=== PATIENT | male | born 1945 | race Caucasian/White ===

== ENCOUNTER 2016-02-25 11:44 | Emergency (ER) | payer MEDICARE, MEDICAID ==
[~2016-02-25] VITALS: Ht 165.1 cm; Wt 70.3 kg
[~2016-02-25 11:44] MED LIST: ASPIRIN80 MG PO; ATENOLOL50 MG PO; CIPRO500 MG PO; D3 VITAMIN400 IU/ML PO; HYDROCHLOROTHIA25 MG PO; MS CONTIN30 MG PO; MULTIVITAMIN1 TAB PO; NEURONTIN400 MG PO; PERCOCET 325 MG1 TA7 PO; PREDNICOT10 MG PO; ULTRAM50 MG PO; VALIUM5 MG PO; WELLBUTRIN SR150 MG PO; ZOCOR80 MG PO; ZOVIRAX400 MG PO
[2016-02-25] MEDS ORDERED: CEPHALEXIN500 M1 PO ×2 (13:42→13:45)
== END 2016-02-25 13:43 | disposition home or self-care (01) ==
LOC: ED 11:44
DX: L03.115 Cellulitis of right lower limb (principal); F17.200 Nicotine dependence, unspecified, uncomplicated; Z79.82 Long term (current) use of aspirin; Z79.899 Other long term (current) drug therapy; Z91.018 Allergy to other foods

== ENCOUNTER → 2016-05-27 | Outpatient (CLI) | payer MEDICARE, MEDICAID ==
[~2016-05-27] MED LIST changes: +CEPHALEXIN500 M1 PO
--- NOTE | ~2016-05-27 | WRIGHTHP ---
[place], [place] PATIENT HISTORY AND PHYSICAL EXAM NAME: JOSE DELGADO [facility] #: [id number] UNIT #: [id number] ROOM: DOCTOR: PIETER GreeneJAKI BIRTHDATE: [birth year] DOS: 05/27/2016 CHIEF COMPLAINT: Chronic wound of the right lower extremity. HISTORY OF PRESENT ILLNESS: This is a 71-year-old male who injured his right lower extremity when he accidentally lacerated his lower right phillips with a hatchet by accident. This happened back in February 2016. He was seen in the ER as he thought it was getting infected. This happened actually after several days before he presented to the ER. There was some notable necrotic area, large amount of ecchymosis, swelling and redness. The patient was treated for cellulitis and then he apparently had an x-ray done which showed an ill-defined tibial lesion recommendation was to consider nonemergent CT scan. Apparently, the patient did follow up with Dr. Madison for this and apparently he did have an MRI done, I do not have the report here, but he says he was told that it was unremarkable; however, he continues to have an area where it has not healed, it is red and still open and occasionally drains. He has been using bacitracin on a very thickly every day now without improvement. PAST MEDICAL HISTORY: Significant for the following: He has had aortic valve repair, stent placement at [facility] 2010 as well as carotid endarterectomy. He is not diabetic. He has had a history of lower back aches. He has had some adrenal surgery done. FAMILY HISTORY: Significant for diabetes, heart disease. SOCIAL HISTORY: He is a current everyday smoker. He has been smoking since the age of 16. He is . He does not drink alcohol or use drugs. ALLERGIES: No known drug allergies. MEDICATIONS: As follows, aspirin low dose 81 mg daily, Ultram 50 b.i.d. p.r.n., Valium 5 mg b.i.d., Neurontin 400 mg every day, Zocor 80 daily, adult multiplex omega 3 chewable tablets daily, Wellbutrin SR 150 b.i.d., hydrochlorothiazide 25 mg daily. REVIEW OF SYSTEMS: He denies any fevers, chills, nausea, vomiting, abdominal pains, or diarrhea. He says he ambulates. He does state that he has had some occasional discomfort in his right leg when he is pushing the feather cutting machine feeder and he will have to stop and breaths before it gets better, but other than that he has not really noticed any other symptoms regarding claudication. PHYSICAL EXAMINATION: VITAL SIGNS: He is afebrile, pulse is 78, respirations 18, and blood pressure is 156/80. In general, he has got a wound that is located on the right anterior tibia. It is a circular wound with what appears to be some periwound dermatitis. There is some erythema right around the wounded area. It is measuring 3 x 3.2 x 0.1. There is no purulence. There does not appear to be cellulitic. No debridement was done. GENERAL: He looks to be his stated age. He is pleasant and cooperative, in no acute distress. [place], [place] PATIENT HISTORY AND PHYSICAL EXAM [facility]: [facility] [id number] UNIT #: [id number] ROOM: DOCTOR: JAKI STAPLETON M.D. BIRTHDATE: [birth year] NECK: There is no JVD. LUNGS: Clear. CARDIOVASCULAR: S1, S2 regular rate and rhythm. ABDOMEN: Soft and nontender. EXTREMITIES: There is no edema, no calf tenderness. His pulses are palpable, although they appear to be weaker on the left side than the right side. He has got good capillary refill and severe onychomycosis bilaterally. His FLOYD was somewhat low on the left side at 0.68 and 0.81 on the right. ASSESSMENT AND PLAN: Chronic wound of the right lower extremity that started out as traumatic injury. I think he does have some fair amount of contact dermatitis, likely from the bacitracin. We will go ahead and stop that. I would just use Aquacel AG for the open area of the wound for now and use some hydrocortisone cream, triamcinolone was written for the periwound area. We will have him change this every other day and have a followup next week. In the meantime, I would like him to get arterial studies due to the low FLOYD and his symptoms of possible claudication. He is a smoker. He had carotid surgery as well as cardiac stents. He is at risk for peripheral vascular disease. I would like them to go ahead and get that test as well. JAKI STAPLETON MD CM:HISPHYS:PATIENT HISTORY AND PHYSICAL EXAMINATION [id number] JAKI STAPLETON M.D. 05/28/16 0936 interface
== END ==
LOC: WOUNDCARE 12:12
DX: S81.811D Laceration without foreign body, right lower leg, subsequent encounter (principal); I48.91 Unspecified atrial fibrillation; B35.1 Tinea unguium; F17.210 Nicotine dependence, cigarettes, uncomplicated; X58.XXXD Exposure to other specified factors, subsequent encounter

== ENCOUNTER → 2016-06-03 | Outpatient (CLI) | payer MEDICARE, MEDICAID | END | disposition home or self-care (01) | LOC: US 10:31 | DX: L97.819 Non-pressure chronic ulcer of other part of right lower leg with unspecified severity (principal); I73.9 Peripheral vascular disease, unspecified ==

== ENCOUNTER → 2016-06-06 | Outpatient (CLI) | payer MEDICARE, MEDICAID ==
--- NOTE | ~2016-06-06 | PR ---
[place], [place] PROGRESS NOTE NAME: JOSE DELGADO JR [facility] #: [id number] UNIT #: [id number] ROOM: DOCTOR: PIETER Greene,JAKI BIRTHDATE: [birth year] DOS: 06/06/2016 CHIEF COMPLAINT: Chronic wound of the right lower extremity. HISTORY OF PRESENT ILLNESS: He had a wound on his right leg back in February, which was traumatic in nature. He was seen for the first time in the [facility] last week and it was felt that he had a chronic wound on the right lower extremity that was worsened by a contact dermatitis, likely from continued use of bacitracin we stopped that and had him use Aquacel Ag dressing to the area and hydrocortisone cream to the periwound area and he was seen here today for this second visit. The wound appears healed. He has no complaints. There is no redness. There is no area of dermatitis. There are no open areas at this time, it looks well healed. He did have an arterial Doppler done as he had an FLOYD 0.68 on the left and 0.81 on the right, which was normal. Unfortunately, they did not take off any of his bandages of the right lower extremity or evaluate any of the arteries below the popliteal. So up to the popliteal artery everything was good, but we do not have any information on the distal arteries. ASSESSMENT AND PLAN: Healed wound. The patient is going to be discharged from the Wound Clinic. I did go over the arterial Doppler study with him if he does have any concerns with his circulation. He can discuss this with his primary care and consider repeating a study at a different venue perhaps. JAKI STAPLETON MD CM:NAVEEN [id number] JAKI STAPLETON M.D. 06/06/16 1228 interface
== END ==
LOC: WOUNDCARE
DX: S81.811D Laceration without foreign body, right lower leg, subsequent encounter (principal); L25.8 Unspecified contact dermatitis due to other agents; X58.XXXD Exposure to other specified factors, subsequent encounter

== ENCOUNTER → 2017-04-24 | Outpatient (CLI) | payer MEDICARE | END | disposition home or self-care (01) | LOC: RAD 13:50 | DX: J44.9 Chronic obstructive pulmonary disease, unspecified (principal); Z87.891 Personal history of nicotine dependence ==

== ENCOUNTER → 2017-05-02 | Outpatient (CLI) | payer MEDICARE ==
--- NOTE | ~2017-05-02 | PF ---
[place], [place] PULMONARY FUNCTION TEST NAME: JOSE DELGADO JR [facility] #: [id number] UNIT #: [id number] ROOM: DOCTOR: KIT MONTEJO MD,JOHANNE BIRTHDATE: [birth year] DOS: 05/02/2017 ORDERED BY: Mckenzie Bansal, nurse practitioner. HISTORY: The patient recorded as a 72-year-old male, height of 67 inches, weight 152 pounds diagnosed with COPD without any active symptom. The patient noted history of tobacco use 1 pack of cigarettes a day for 57 years. SPIROMETRY: The FVC was recorded at 3.60 liters as 95% predicted value, FEV1 of 2.61 liters as 95% predicted value. Ratio of FEV1/FVC recorded as 72%. No significant postbronchodilator changes were noted. Flow volume loop was suggestive of mild obstructive airway pattern. LUNG VOLUME: Thoracic gas volume of 125%, residual volume 37%, total lung capacity 106%. RV/TLC ratio 128%. Lung volumes suggest mild air trapping. The patient's lung diffusion noted mildly decreased at 63% without correction of carbon monoxide hemoglobin value. The patient's airway resistance and passive conductance noted normal, partial improvement post-bronchodilator test. FINAL IMPRESSION: The test was suggestive of possibility of mild reversible obstructive lung disease for patient with mild reduction in lung diffusion. JOHANNE PANTOJA MD CM:PFREPORT:PULMONARY FUNCTION TEST [id number] JOHANNE MONTEJO MD
== END | disposition home or self-care (01) ==
LOC: CP 12:42
DX: J44.9 Chronic obstructive pulmonary disease, unspecified (principal)

== ENCOUNTER → 2017-05-13 | Outpatient (CLI) | payer MEDICARE | END | disposition home or self-care (01) | LOC: CT 09:28 | DX: N20.0 Calculus of kidney (principal); I71.4 Abdominal aortic aneurysm, without rupture; K57.30 Diverticulosis of large intestine without perforation or abscess without bleeding; M88.88 Osteitis deformans of other bones ==

== ENCOUNTER → 2017-08-22 | Outpatient (CLI) | payer MEDICARE | END | disposition home or self-care (01) | LOC: US 00:01 | DX: N13.30 Unspecified hydronephrosis (principal); N20.0 Calculus of kidney ==

== ENCOUNTER → 2017-08-23 | Outpatient (CLI) | payer MEDICARE | END | disposition home or self-care (01) | LOC: RAD 00:01 | DX: N20.0 Calculus of kidney (principal) ==

== ENCOUNTER → 2017-12-22 | Outpatient (CLI) | payer MEDICARE | END | disposition home or self-care (01) | LOC: US 07:15 | DX: N20.0 Calculus of kidney (principal); N40.1 Benign prostatic hyperplasia with lower urinary tract symptoms; M88.9 Osteitis deformans of unspecified bone ==

== ENCOUNTER → 2018-06-11 | Outpatient (CLI) | payer MEDICARE | END | disposition home or self-care (01) | LOC: CT 08:51 | DX: C74.91 Malignant neoplasm of unspecified part of right adrenal gland (principal); K57.30 Diverticulosis of large intestine without perforation or abscess without bleeding; K76.0 Fatty (change of) liver, not elsewhere classified ==

== ENCOUNTER 2018-07-30 23:08 | Emergency (ER) | payer MEDICARE ==
[~2018-07-30] VITALS: Ht 160 cm; Wt 64.0 kg
[2018-07-30 23:42] LABS: BASO % 0.4 % (0.0-1.0); EOS # 0.3 10*3/uL (0.0-0.4); EOS % 3.4 % (1.0-4.0); HEMATOCRIT 43.5 % (42.0-52.0); HEMOGLOBIN 14.6 g/dl (14.0-18.0); LYMPH % 20.2 % (27.0-41.0); MEAN CELL VOLUME 99.5 fl (80.0-94.0); MEAN CORPUSCULAR HGB 33.4 pg (27.0-31.0); MEAN CORPUSCULAR HGB CONC 33.6 g/dl (33.0-37.0); MEAN PLATELET VOLUME 10.1 fl (9.6-12.3); NEUT # 6.5 10*3/uL (2.3-7.9); NEUT % 65.7 % (47.0-73.0); PLATELET COUNT AUTOMATED 134 10*3/uL (130-400); RED BLOOD COUNT 4.37 10*6/uL (4.50-5.90); WHITE BLOOD COUNT 9.9 10*3/uL (4.8-10.8)
[2018-07-30 23:56] LABS: ALBUMIN 3.4 gm/dl (3.1-4.5); ALKALINE PHOSPHATASE 118 U/L (45-117); BUN 19 mg/dl (7-24); CHLORIDE 102 mmol/L (98-107); CREATININE 1.34 mg/dL (0.70-1.30); LIPASE 83 U/L (73-393); POTASSIUM 3.3 mmol/L (3.5-5.1); SGOT/AST 17 IU/L (3-35); SGPT/ALT 13 U/L (12-78); SODIUM 136 mmol/L (136-145); TOTAL PROTEIN 7.7 gm/dL (6.4-8.2)
[2018-07-31 01:04] LABS: BILIRUBIN NEGATIVE (NEGATIVE); BLOOD 2+ (NEGATIVE); CLARITY CLEAR (CLEAR); COLOR YELLOW (YELLOW); GLUCOSE NEGATIVE (NEGATIVE); KETONE TRACE (NEGATIVE); LEUKO ESTERASE TRACE (NEGATIVE); NITRITE NEGATIVE (NEGATIVE); PH 6.5 (5.0-9.0); SPECIFIC GRAVITY 1.015 (1.005-1.030); UROBILINOGEN 0.2 E.U./dl (0.2-1.0)
[2018-07-31 01:19] LABS: RBC 21-30 rbc/hpf (0-2)
== END 2018-07-31 03:38 | disposition short-term general hospital (02) ==
LOC: ED 23:08
PROVIDERS: Physician Assistant
DX: N13.2 Hydronephrosis with renal and ureteral calculous obstruction (principal); Z87.442 Personal history of urinary calculi; Z91.018 Allergy to other foods; Z79.2 Long term (current) use of antibiotics; Z79.82 Long term (current) use of aspirin; Z79.899 Other long term (current) drug therapy

== ENCOUNTER → 2018-12-03 | Outpatient (CLI) | payer MEDICARE | END | disposition home or self-care (01) | LOC: CP 13:37 | DX: J43.9 Emphysema, unspecified (principal) ==

== ENCOUNTER 2020-02-17 22:48 | Emergency (ER) | payer MEDICARE ==
[~2020-02-17] VITALS: Ht 162.5 cm; Wt 65.8 kg
[2020-02-17 23:36] LABS: BASO % 0.4 % (0.0-1.0); EOS # 0.1 10*3/uL (0.0-0.4); EOS % 1.9 % (1.0-4.0); HEMATOCRIT 43.9 % (42.0-52.0); LYMPH # 1.2 10*3/uL (1.3-4.4); LYMPH % 17.4 % (27.0-41.0); MEAN CORPUSCULAR HGB 32.3 pg (27.0-31.0); MEAN CORPUSCULAR HGB CONC 32.3 g/dl (33.0-37.0); MEAN PLATELET VOLUME 9.9 fl (9.6-12.3); MONO # 0.5 10*3/uL (0.1-1.0); MONO % 7.1 % (3.0-9.0); NEUT # 5.1 10*3/uL (2.3-7.9); NEUT % 73.1 % (47.0-73.0); PLATELET COUNT AUTOMATED 153 10*3/uL (130-400); RED BLOOD COUNT 4.39 10*6/uL (4.50-5.90); WHITE BLOOD COUNT 6.9 10*3/uL (4.8-10.8)
[2020-02-17 23:52] LABS: ALBUMIN 3.4 gm/dl (3.1-4.5); ALKALINE PHOSPHATASE 113 U/L (45-117); BUN 21 mg/dl (7-24); CHLORIDE 102 mmol/L (98-107); CREATININE 1.28 mg/dL (0.70-1.30); POTASSIUM 3.6 mmol/L (3.5-5.1); SGOT/AST 16 IU/L (3-35); SGPT/ALT 16 U/L (12-78); SODIUM 136 mmol/L (136-145); TOTAL PROTEIN 7.6 gm/dL (6.4-8.2)
[2020-02-18 02:24] LABS: BILIRUBIN Negative (Negative); BLOOD Trace-Lysed (Negative); CLARITY Clear (Clear); COLOR Yellow (Yellow); GLUCOSE Negative (Negative); KETONE 1+ (Negative); LEUKO ESTERASE Trace (Negative); NITRITE Negative (Negative); SPECIFIC GRAVITY 1.025 (1.001-1.030)
[2020-02-18] MEDS ORDERED: OMNICEF300 MG PO (02:44)
== END 2020-02-18 03:02 | disposition home or self-care (01) ==
LOC: ED 22:48
PROVIDERS: Emergency Medicine
DX: J18.9 Pneumonia, unspecified organism (principal); Z79.82 Long term (current) use of aspirin; Z79.899 Other long term (current) drug therapy; Z20.828 Contact with and (suspected) exposure to other viral communicable diseases

== ENCOUNTER → 2020-09-08 | Outpatient (CLI) | payer MEDICARE ==
[~2020-09-08] MED LIST changes: +OMNICEF300 MG PO
== END | disposition home or self-care (01) ==
LOC: US 09-07 11:30
PROVIDERS: ATTEND Physician Assistant
DX: I25.10 Atherosclerotic heart disease of native coronary artery without angina pectoris (principal); I10 Essential (primary) hypertension; R09.89 Other specified symptoms and signs involving the circulatory and respiratory systems; E78.00 Pure hypercholesterolemia, unspecified; M54.41 Lumbago with sciatica, right side; F17.200 Nicotine dependence, unspecified, uncomplicated; F17.210 Nicotine dependence, cigarettes, uncomplicated; R29.898 Other symptoms and signs involving the musculoskeletal system

== ENCOUNTER → 2020-09-18 | Outpatient (CLI) | payer MEDICARE | END | disposition home or self-care (01) | LOC: CT 08:56 | PROVIDERS: ATTEND Physician Assistant | DX: I67.89 Other cerebrovascular disease (principal); E86.9 Volume depletion, unspecified; I10 Essential (primary) hypertension; R29.898 Other symptoms and signs involving the musculoskeletal system; H61.23 Impacted cerumen, bilateral; E78.00 Pure hypercholesterolemia, unspecified; F17.210 Nicotine dependence, cigarettes, uncomplicated ==

== ENCOUNTER → 2021-08-03 | Outpatient (CLI) | payer MEDICARE | END | disposition home or self-care (01) | LOC: CT 07-27 09:00 | PROVIDERS: ATTEND Surgery | DX: N20.2 Calculus of kidney with calculus of ureter (principal); R91.1 Solitary pulmonary nodule; M88.89 Osteitis deformans of multiple sites ==

== ENCOUNTER → 2021-09-13 | Outpatient (CLI) | payer MEDICARE ==
[~2021-09-13] MED LIST changes: +CELEXA10 MG PO; +LYRICA225 MG PO; +MELOXICAM15 MG PO; +Mysoline50 MG PO; +PAROXETINE10 MG PO; +PROPRANOLOL HCL40 M1 PO; +PROTONIX40 MG PO
== END | disposition home or self-care (01) ==
LOC: RAD 12:20
PROVIDERS: ATTEND Physician Assistant
DX: J98.11 Atelectasis (principal)

== ENCOUNTER 2021-09-22 17:46 | Emergency (ER) | payer MEDICARE ==
[2021-09-22 18:27] LABS: BASO % 0.3 % (0.0-1.0); EOS # 0.2 10*3/uL (0.0-0.4); HEMATOCRIT 36.5 % (42.0-52.0); LYMPH # 1.7 10*3/uL (1.3-4.4); LYMPH % 17.2 % (27.0-41.0); MEAN CELL VOLUME 96.1 fl (80.0-94.0); MEAN CORPUSCULAR HGB 31.8 pg (27.0-31.0); MEAN CORPUSCULAR HGB CONC 33.2 g/dl (33.0-37.0); MEAN PLATELET VOLUME 9.8 fl (9.6-12.3); MONO # 0.9 10*3/uL (0.1-1.0); MONO % 8.9 % (3.0-9.0); NEUT # 6.9 10*3/uL (2.3-7.9); NEUT % 71.3 % (47.0-73.0); PLATELET COUNT AUTOMATED 226 10*3/uL (130-400); RED CELL DISTRI WIDTH 14.3 % (0-14.5); WHITE BLOOD COUNT 9.7 10*3/uL (4.8-10.8)
[2021-09-22 18:43] LABS: ALKALINE PHOSPHATASE 102 U/L (45-117); BUN 19 mg/dl (7-24); CHLORIDE 103 mmol/L (98-107); CREATININE 1.04 mg/dL (0.70-1.30); POTASSIUM 3.8 mmol/L (3.5-5.1); SGOT/AST 25 IU/L (3-35); SGPT/ALT 24 U/L (12-78); SODIUM 135 mmol/L (136-145); TOTAL PROTEIN 7.8 gm/dL (6.4-8.2)
[2021-09-22] MEDS ORDERED: VIBRAMYCIN100 MG PO (20:18)
== END 2021-09-22 20:41 | disposition home or self-care (01) ==
LOC: ED 17:46
PROVIDERS: Physician Assistant
DX: J18.9 Pneumonia, unspecified organism (principal); Z20.822 Contact with and (suspected) exposure to COVID-19; F17.200 Nicotine dependence, unspecified, uncomplicated; Z79.899 Other long term (current) drug therapy; Z79.82 Long term (current) use of aspirin

== ENCOUNTER → 2021-11-01 | Outpatient (CLI) | payer MEDICARE ==
[~2021-11-01] MED LIST changes: +VIBRAMYCIN100 MG PO
== END | disposition home or self-care (01) ==
LOC: CARD 12:48
PROVIDERS: ATTEND Internal Medicine
DX: I73.9 Peripheral vascular disease, unspecified (principal)

== ENCOUNTER 2022-10-07 19:00 | Emergency (ER) | payer OTHER ==
[~2022-10-07] VITALS: Ht 167.6 cm; Wt 63.5 kg
[~2022-10-07 19:00] MED LIST changes: +Carafate1 GM PO; +DONEPEZIL HYDROC5 MG PO; +MAPAP ARTHRITI650 MG PO; +MYRBETRIQ25 M1 PO; +NEURONTIN300 MG PO; +SIMVASTATIN40 MG PO; +TAMSULOSIN HCL0.4 MG PO
[2022-10-07 19:58] LABS: BASO % 0.4 % (0.0-1.0); EOS # 0.4 10*3/uL (0.0-0.4); EOS % 3.8 % (1.0-4.0); HEMATOCRIT 38.6 % (42.0-52.0); LYMPH # 1.8 10*3/uL (1.3-4.4); MEAN CELL VOLUME 100.8 fl (80.0-94.0); MEAN CORPUSCULAR HGB 32.4 pg (27.0-31.0); MEAN CORPUSCULAR HGB CONC 32.1 g/dl (33.0-37.0); MONO # 0.7 10*3/uL (0.1-1.0); MONO % 7.8 % (3.0-9.0); NEUT # 6.2 10*3/uL (2.3-7.9); NEUT % 67.7 % (47.0-73.0); PLATELET COUNT AUTOMATED 195 10*3/uL (130-400); RED BLOOD COUNT 3.83 10*6/uL (4.50-5.90); RED CELL DISTRI WIDTH 13.4 % (0-14.5); WHITE BLOOD COUNT 9.1 10*3/uL (4.8-10.8)
[2022-10-07 20:18] LABS: ACT PARTIAL THROMBO TIME 32.2 SECONDS (20.0-32.1)
[2022-10-07 20:22] LABS: ALKALINE PHOSPHATASE 125 U/L (46-116); BUN 23 mg/dl (9-23); CHLORIDE 105 mmol/L (98-107); LIPASE 41 U/L (12-53); POTASSIUM 4.9 mmol/L (3.4-5.1); SGPT/ALT 11 U/L (10-49); TOTAL PROTEIN 7.1 gm/dL (6.0-8.0)
[2022-10-07 20:25] LABS: ETHYL ALCOHOL < 3.0 mg/dl (<3)
[2022-10-07 20:26] LABS: BILIRUBIN Negative (Negative); BLOOD Negative (Negative); CLARITY Cloudy (Clear); COLOR Dark Yellow (Yellow); GLUCOSE Negative (Negative); KETONE Trace (Negative); LEUKO ESTERASE Trace (Negative); NITRITE Negative (Negative); PH 6.5 (4.5-8.0); SPECIFIC GRAVITY 1.025 (1.001-1.030)
[2022-10-07 20:33] LABS: BACTERIA 2+
[2022-10-07 23:14] LABS: URINE AMPHETAMINES Negative (1000ng/ml); URINE BARBITURATES Negative (200ng/ml); URINE BENZODIAZEPINES Negative (200ng/ml); URINE CANNABINOIDS (THC) Negative (50ng/ml); URINE COCAINE Negative (300ng/ml); URINE METHADONE Negative (300ng/ml); URINE OPIATES Negative (300ng/ml); URINE PHENCYCLIDINE Negative (25ng/ml)
[2022-10-07] MEDS ORDERED: MIRALAX POWDER17 G1 PO (23:25)
[2022-10-07] MEDS ORDERED: SEPTDS PO ×2 (23:25)
== END 2022-10-07 23:21 | disposition home or self-care (01) ==
LOC: ED 19:00
PROVIDERS: Internal Medicine
DX: N39.0 Urinary tract infection, site not specified (principal); K59.00 Constipation, unspecified; E78.5 Hyperlipidemia, unspecified; F03.90 Unspecified dementia, unspecified severity, without behavioral disturbance, psychotic disturbance, mood disturbance, and anxiety; F17.210 Nicotine dependence, cigarettes, uncomplicated; Z91.018 Allergy to other foods; Z79.82 Long term (current) use of aspirin; Z79.899 Other long term (current) drug therapy; Z95.5 Presence of coronary angioplasty implant and graft; Z98.890 Other specified postprocedural states